=== PATIENT | female | born 1975 ===

== ENCOUNTER 2018-04-28 06:30 | Day surgery (SDC) | payer OTHER ==
[2018-04-28] MEDS ORDERED: Lactated Ringer's 500 ML IV SCH (08:00)
[2018-04-28] MEDS ORDERED: Midazolam 2 MG/2 ML VIAL ONE (08:01)
[2018-04-28] MEDS ORDERED: Propofol 10 mg/ml Inj (20 ML) ONE (08:02)
[2018-04-28] MEDS ORDERED: Lidocaine Hydrochloride 5 ML INJ ONE (08:02)
--- NOTE | 2018-04-28 08:05 | CP.SDSHP ---
Same Day Surgery H & P - History Proposed Procedure: egd. colonoscopy Pre-Op Diagnosis: epigastric pain'. severe heartburn. rectal bleeding - Previous Medical/Surgical History Cardiac: Hypertension Endocrine/Metabolic: Obesity Neuro: Backaches, Other (herniated discs, ) Previous Surgical History: Tubal ligation. cardiac cath-2013 normal - Allergies Allergies: Allergies No Known Allergies Allergy (Unverified 04/28/18 07:00) - Physical Exam Vital Signs: Vital Signs 04/28/18 04/28/18 06:55 07:55 Temperature 97.5 F L 97.5 F L Pulse Rate 63 63 Respiratory 16 16 Rate Blood Pressure 124/75 124/75 O2 Sat by Pulse 99 99 Oximetry Mental Status: Alert & Oriented x3 Neuro: WNL Heart: WNL Lungs: WNL GI: WNL - Impression Impression: epigastric pain. heartburn. rectal bleeding Pt. Evaluated Today:Candidate for Anesthesia & Procedure: Yes - Date & Time Date: 04/28/18 Time: 08:05 Short Stay Discharge - Short Stay Discharge Admitting Diagnosis/Reason for Visit: EPIGASTRIC PAIN / MELENA / HEARTBURN Disposition: HOME/ ROUTINE Referrals: Mary Brandt MD [Primary Care Provider] -
[2018-04-28] MEDS ORDERED: Pantoprazole 40 mg EC Tab PO STA (08:44)
[2018-04-28 10:47] VITALS: TEMP 97.4
[2018-04-28 10:50] VITALS: O2SAT 100
[2018-04-28 10:56] VITALS: BP 150/72; PULSE 62; RESP 20
== END 2018-04-28 10:00 | disposition home or self-care (01) ==
LOC: C.ENDO 06:30
PROVIDERS: ATTEND Internal Medicine Gastroenterology
DX: R10.13 Epigastric pain (principal); R12 Heartburn; K92.1 Melena; K62.5 Hemorrhage of anus and rectum; D12.5 Benign neoplasm of sigmoid colon; K64.8 Other hemorrhoids; K57.90 Diverticulosis of intestine, part unspecified, without perforation or abscess without bleeding; K20.9 Esophagitis, unspecified; K44.9 Diaphragmatic hernia without obstruction or gangrene
CPT/HCPCS: 43239; 45385; 82948; 84703; 88305; 88312; 88342; J2250; J2704; J7120